=== PATIENT | male | born 1965 | race Caucasian/White ===

== ENCOUNTER 2021-11-04 10:24 | Emergency (ER) | payer OTHER ==
[~2021-11-04] VITALS: Ht 188 cm; Wt 77.1 kg
--- NOTE | 2021-11-04 11:24 | NUR ---
PT SEEN AND EVALUATED BY DR PARK. PT INSTRUCTED TO FOLLOW UP WITH PRIMARY MD. MD FELT THERE WAS NO SIGNS OF INFECTION PT SUSPECTED. DISCHARGE INSTRUCTIONS GIVEN PER MD ORDER.
[2021-11-04 11:27] VITALS: BP 144/98
== END 2021-11-04 11:00 | disposition home or self-care (01) ==
LOC: ER 10:24
DX: R51.9 Headache, unspecified (principal)
CPT/HCPCS: A4663